=== PATIENT | male | born 1970 | race Caucasian/White ===

== ENCOUNTER → 2024-05-26 07:10 | Outpatient (REF) | payer OTHER, SELFPAY | LOC: HWRCS 07:10 | PROVIDERS: ATTENDING PHYSICIAN Internal Medicine Cardiovascular Disease; FAMILY PHYSICIAN Family Medicine | DX: R06.09 Other forms of dyspnea (principal) | CPT/HCPCS: 93306 ==

== ENCOUNTER → 2024-05-29 07:34 | Outpatient (REF) | payer OTHER, SELFPAY | LOC: RCS 07:34 | PROVIDERS: ATTENDING PHYSICIAN Internal Medicine Cardiovascular Disease; FAMILY PHYSICIAN Family Medicine | DX: R06.09 Other forms of dyspnea (principal) | CPT/HCPCS: 93017 ==